=== PATIENT | female | born 1990 | race African-American/Black ===

== ENCOUNTER 2017-06-09 02:29 | Emergency (ER) | payer OTHER ==
[~2017-06-09] VITALS: Ht 165.1 cm; Wt 56.7 kg
--- NOTE | ~2017-06-09 | US61 ---
[facility] A Service of [facility] RADIOLOGY TEXT RESULTS PATIENT: CIARAN QUINONEZ LOCATION: [facility] : [birth year] UNIT #: [id number] AGE: [address]: Teetee Singh MD SEX: F ORDER DR: [id number] [facility] [address] [place], [place] [address] [id number] MR#: [id number] Acc #: [id number] NAME: CIARAN QUINONEZ. : 1990 SEX: F STUDY DATE/TIME: 06/09/2017 4:55 UNIT: [facility] ROOM: STUDY DESCRIPTION: US /Mat <14Wk / Attending Physician: Teetee Singh M.D. Ordering Physician: Sanjay Murphy D.O. Primary Care Physician: No Primary Care Physician MEDICAL IMAGING REPORT This report is preliminary unless electronic signature is present EXAM Ultrasound pelvis, first trimester , 06/09/2017. HISTORY 26-year-old female in the ED with the first trimester and 3-day history of nausea and cramping abdominal pain. TECHNIQUE Pelvic ultrasound examination was performed transabdominally. FINDINGS Single living intrauterine gestation. [place] rump length measures 1.23 cm. Gestational age by composite ultrasound parameters is 7 weeks, 6 days with an JACI of 01/20/2018. Gestational sac size is appropriate for gestational age and the sac is normally positioned within the central endometrial cavity. There is a tiny amount of subchorionic fluid. Embryonic heart rate measures 157 beats per minute. Both ovaries are normal in size and ultrasound appearance. No free pelvic fluid. IMPRESSION Single living intrauterine gestation at 7 weeks, 6 days. Dictated by... Tae Morris M.D. THIS IS AN ELECTRONICALLY VERIFIED REPORT Tae Morris M.D. at 06/09/2017 9:49 PM SHERRI/garland TD: 06/09/2017 08:50 JOB #: [id number] [facility] A Service of [facility] RADIOLOGY TEXT RESULTS PATIENT: CIARAN QUINONEZ LOCATION: [facility] #: [id number] : [birth year] UNIT #: [id number] AGE: [address]: Teetee Singh MD SEX: F ORDER DR: MEDICAL IMAGING REPORT Page 1 of 1 COPY
[2017-06-09 03:37] LABS: URINE SOURCE CLEAN CATCH
[2017-06-09 03:42] LABS: BASOPHIL% 0.3 % (0-2.5); EOSINOPHIL% 0.6 % (0.0-7.0); HEMOGLOBIN 12.9 gm/dL (12.0-16.0); LYMPHOCYTE# 1.3 X10e3 (1.0-3.5); LYMPHOCYTE% 19.4 % (17.0-45.0); MEAN CELL VOLUME 86.7 FL (83-96); MEAN CORPUSCULAR HEMOGLOBIN 29.4 PG (28-34); MEAN CORPUSCULAR HGB CONC 33.9 g/dL (30-36); MEAN PLATELET VOLUME 7.2 FL (6.5-11.5); MONOCYTE# 0.6 X10e3 (0-1.0); MONOCYTE% 8.7 % (3.0-12.0); NEUTROPHIL# 4.7 X10e3 (1.5-7.1); PLATELET COUNT 363 X10e3 (140-420); RED BLOOD COUNT 4.38 X10e (3.90-5.30); RED CELL DISTRIBUTION WIDTH 13.2 % (11.0-15.5); WHITE BLOOD COUNT 6.6 X10e3 (4.0-10.5)
[2017-06-09 03:44] LABS: DIFF IND NO
[2017-06-09 03:45] LABS: URINE APPEARANCE CLOUDY; URINE BLOOD NEG (NEG); URINE COLOR DK YELLOW; URINE GLUCOSE NEG (NEG); URINE KETONE 3+ (NEG); URINE LEUKOCYTE ESTERASE 1+ (NEG); URINE NITRATE NEG (NEG); URINE PROTEIN TRACE (NEG)
[2017-06-09 03:54] LABS: URINE BILIRUBIN NEG (NEG); URINE MUCUS PRESENT; URINE SQUAMOUS EPITHELIAL CELL MODERATE /[HPF]; UWBCS1 AUWI 0-2 (0-5)
[2017-06-09 04:12] LABS: ALBUMIN SERUM 4.5 g/dL (3.5-5.0); BILIRUBIN, DIRECT 0.2 mg/dL (0.0-0.2); BILIRUBIN,INDIRECT 0.6 mg/dL (0.0-0.9); BILIRUBIN,TOTAL 0.8 mg/dL (0.2-2.0); CALCIUM SERUM 9.8 mg/dL (8.4-10.2); CREATININE SERUM 0.6 mg/dL (0.6-1.4); GLOM FILT RATE Estimated 126.7 mL/min (>60); POTASSIUM 3.2 mmol/L (3.5-5.1); PROTEIN TOTAL SERUM 8.6 g/dL (6.0-8.3)
[2017-06-09 04:18] LABS: CULTURE INDICATED? NO
[2017-06-10 21:50] LABS: CHLAMYDIA TRACH Detected (Not Detected); N GONOR Not Detected (Not Detected)
== END 2017-06-09 09:01 | disposition home or self-care (01) ==
LOC: CED 02:29
PROVIDERS: Emergency Medicine
DX: O21.9 Vomiting of pregnancy, unspecified (principal); Z3A.01 Less than 8 weeks gestation of pregnancy
CPT/HCPCS: 36415; 76801; 80048; 80076; 81003; 83690; 84702; 84703; 85025; 86900; 86901; 87491; 87591; 87808; 87905; 96361; 96374; 96375; 99284; J2765

== ENCOUNTER 2017-06-27 09:10 | Emergency (ER) | payer OTHER ==
[~2017-06-27] VITALS: Ht 165.1 cm; Wt 59.0 kg
[2017-06-27 10:07] LABS: URINE SOURCE CLEAN CATCH
[2017-06-27 10:11] LABS: URINE APPEARANCE CLEAR; URINE BLOOD NEG (NEG); URINE COLOR DK YELLOW; URINE GLUCOSE NEG (NEG); URINE KETONE 2+ (NEG); URINE LEUKOCYTE ESTERASE NEG (NEG); URINE NITRATE NEG (NEG); URINE PROTEIN NEG (NEG); URINE SPECIFIC GRAVITY 1.032 (1.003-1.035)
[2017-06-27 10:16] LABS: URINE BILIRUBIN NEG (NEG)
[2017-06-27 10:22] LABS: CULTURE INDICATED? NO
== END 2017-06-27 11:18 | disposition home or self-care (01) ==
LOC: CED 09:10
PROVIDERS: Physician Assistant Medical
DX: O21.9 Vomiting of pregnancy, unspecified (principal)
CPT/HCPCS: 81003; 96361; 96374; 99284; J2405

== ENCOUNTER 2017-07-06 19:06 | Emergency (ER) | payer OTHER ==
[~2017-07-06] VITALS: Ht 162.6 cm; Wt 56.7 kg
[2017-07-06 20:03] LABS: BASOPHIL% 0.4 % (0-2.5); EOSINOPHIL# 0.1 X10e3 (0-0.7); EOSINOPHIL% 1.3 % (0.0-7.0); HEMATOCRIT 36.9 % (35.0-45.0); HEMOGLOBIN 12.6 gm/dL (12.0-16.0); LYMPHOCYTE# 1.2 X10e3 (1.0-3.5); LYMPHOCYTE% 19.6 % (17.0-45.0); MEAN CELL VOLUME 86.7 FL (83-96); MEAN CORPUSCULAR HEMOGLOBIN 29.5 PG (28-34); MEAN CORPUSCULAR HGB CONC 34.1 g/dL (30-36); MEAN PLATELET VOLUME 7.1 FL (6.5-11.5); MONOCYTE# 0.4 X10e3 (0-1.0); MONOCYTE% 7.4 % (3.0-12.0); NEUTROPHIL# 4.3 X10e3 (1.5-7.1); NEUTROPHIL% 71.3 % (40-75); PLATELET COUNT 309 X10e3 (140-420); RED BLOOD COUNT 4.25 X10e (3.90-5.30); RED CELL DISTRIBUTION WIDTH 13.2 % (11.0-15.5)
[2017-07-06 20:09] LABS: DIFF IND NO
[2017-07-06 20:37] LABS: ALBUMIN SERUM 3.6 g/dL (3.5-5.0); BILIRUBIN, DIRECT 0.2 mg/dL (0.0-0.2); BILIRUBIN,INDIRECT 0.1 mg/dL (0.0-0.9); BILIRUBIN,TOTAL 0.3 mg/dL (0.2-2.0); CALCIUM SERUM 9.4 mg/dL (8.4-10.2); CREATININE SERUM 0.5 mg/dL (0.6-1.4); GLOM FILT RATE Estimated 155.9 mL/min (>60); POTASSIUM 3.6 mmol/L (3.5-5.1); PROTEIN TOTAL SERUM 7.6 g/dL (6.0-8.3)
[2017-07-06 21:01] LABS: URINE SOURCE CLEAN CATCH
[2017-07-06 21:27] LABS: URINE APPEARANCE CLOUDY; URINE BILIRUBIN NEG (NEG); URINE BLOOD NEG (NEG); URINE COLOR DK YELLOW; URINE GLUCOSE NEG (NEG); URINE KETONE 3+ (NEG); URINE LEUKOCYTE ESTERASE 2+ (NEG); URINE NITRATE NEG (NEG); URINE PH 6.5 (5-8); URINE PROTEIN NEG (NEG); URINE SPECIFIC GRAVITY 1.028 (1.003-1.035)
[2017-07-06 21:32] LABS: CULTURE INDICATED? YES; URINE BACTERIA AUWI 2+ (NEGATIVE); URINE SQUAMOUS EPITHELIAL CELL MOD /[HPF]
[2017-07-06 21:55] LABS: U HYALINE CASTS AUWI 0-2 /[LPF]
== END 2017-07-07 01:06 | disposition home or self-care (01) ==
LOC: CED 19:06
PROVIDERS: Emergency Medicine
DX: O23.41 Unspecified infection of urinary tract in pregnancy, first trimester (principal); O21.0 Mild hyperemesis gravidarum; Z3A.12 12 weeks gestation of pregnancy
CPT/HCPCS: 36415; 80048; 80076; 81003; 83690; 84703; 85025; 87086; 96361; 96365; 96375; 99284; J0696; J2765